=== PATIENT | female | born 1950 | race Caucasian/White ===

== ENCOUNTER → 2017-08-19 | Day surgery (SDC) | payer OTHER, MEDICARE ==
[2017-08-18 12:30] LABS: BASOPHILS # (AUTO) 0.1 (0.0-0.1); BASOPHILS % 0.9 % (0.0-1.0); EOSINOPHILS # (AUTO) 0.3 (0.0-0.4); EOSINOPHILS % 4.4 % (0.0-6.0); HEMATOCRIT 39.9 % (34.2-44.1); HEMOGLOBIN 14.3 g/dL (12.0-16.0); LYMPHOCYTES # (AUTO) 2.2 (1.0-3.2); LYMPHOCYTES % 33.1 % (18.0-39.1); MEAN CORPUSCULAR HEMOGLOBIN 33.7 pg (28-32); MEAN CORPUSCULAR HGB CONC 35.8 g/dL (31-35); MEAN CORPUSCULAR VOLUME 94.1 fL (81-99); MONOCYTES # (AUTO) 0.5 (0.2-0.8); MONOCYTES % 8.1 % (4.4-11.3); NEUTROPHILS # (AUTO) 3.5 (2.1-6.9); PLATELET COUNT 107 x10e3/uL (140-360); RED BLOOD COUNT 4.24 x10e6/uL (3.6-5.1); RED CELL DISTRIBUTION WIDTH 14.1 % (11.7-14.4)
[2017-08-18 12:43] LABS: ANION GAP 13.9 mmol/L (8-16); BLOOD UREA NITROGEN 11 mg/dL (7-26); BUN/CREATININE RATIO 13 (6-25); CALCIUM 10.8 mg/dL (8.4-10.2); CARBON DIOXIDE 25 mmol/L (22-29); CHLORIDE 105 mmol/L (98-107); CREATININE, SERUM 0.82 mg/dL (0.57-1.11); EST GLOMERULAR FILTRATION RATE > 60 ML/MIN (60-); GLUCOSE 128 mg/dL (74-118); POTASSIUM 3.9 mmol/L (3.5-5.1); SODIUM 140 mmol/L (136-145)
--- NOTE | 2017-08-18 12:56 | Diagnostic Imaging Report ---
PROCEDURE: Frontal and lateral views of the chest. COMPARISON: Chest 2 views 03/11/2013. INDICATIONS: PREOPERATIVE CHEST XRAY FOR AXILLARY ADENOMA SURGERY FINDINGS: Lines/tubes: None. Lungs: The lungs are well inflated and clear. There is no evidence of pneumonia or pulmonary edema. Densities projecting over the lateral hemithoraces likely represent superimposed soft tissues from the upper extremities. Pleura: There is no pleural effusion or pneumothorax. Heart and mediastinum: The heart and the mediastinum are normal. Bones: No acute bony abnormality. Degenerative changes of the thoracic spine. IMPRESSION: No acute radiographic abnormality. Dictated by: Kyler Rojas M.D. on 08/18/2017 at 12:57 Electronically approved by: Kyler Rojas M.D. on 08/18/2017 at 12:57
[~2017-08-19] MED LIST: ALLERCLEAR10 MG PO; ALTACE2.5 MG PO; ASPIRIN81 MG PO; BUPIVACAINE 0.25%/EPI 30ML SDV INJ ONE; CALCIUM + VITA1 EACH PO; CALCIUM600 MG PO; CRESTOR20 MG PO; DEXAMETHASONE SOD PHOS INJ 4 MG/ML VIAL ONE; DILTIAZEM 24HR120 MG PO; FENTANYL CITRATE/PF 100MCG/2 ML INJ ONE; GLUCOPHAGE1000 MG PO; HEARTBURN RELI150 MG PO; HUMALOG100 UNIT/3 SQ; HUMULIN R100 UNIT/2 SC; INVOKANA PO; KETOROLAC TROMETHAMINE 30 MG/ML VIAL ONE; LIDOCAINE HCL 2% LOCAL INJ 5 ML SDV VIAL INJ ONE; MIDAZOLAM HCL 2 MG/2 ML VIAL ONE; ONDANSETRON HCL INJ 2 MG/ML VIAL ONE; PANTOPRAZOLE SO40 MG PO; PLAVIX75 MG PO; PROPOFOL IV EMULSION 10 MG/ML 20 ML VIAL ONE; SEVOFLURANE INHAL SOLN 250 ML PEN BTL ONE; TIROSINT75 MCG PO; VIT B12 INJ; VIT D; VITAMIN D1000 UNI1 PO; ZEBETA10 MG PO
--- OUTSIDE RECORDS SUMMARY | 2017-08-19 10:08 | XMS REPORT | Summary of Care ---
Author Author RYLEY Calix, SILVIA Organization Unknown Address [facility] Phone Unavailable Care Team Providers Care Lay Out Helper Name Role Phone SILVIA HEDRICK M.D. Unavailable Unavailable GORDON N.PJANKI Loera Unavailable Unavailable Unavailable Unavailable Functional Status Name Dates Details Functional status health issues are not documented Status: Name Dates Details Cognitive status health issues are not documented Status: Problems Name Dates Details Postmenopausal bleeding (627.1, N95.0) Status: Active Bacterial endocarditis (421.0, I33.0) Status: Active Medications Name Dates Details Aspirin Low Dose 81 MG Oral Tablet Delayed Release * Start : 01-Jun-2017 Active Bisoprolol Fumarate 5 MG Oral Tablet * Refills: 0 * Start : 01-Jun-2017 Active Clopidogrel Bisulfate 75 MG Oral Tablet * Refills: 0 * Start : 01-Jun-2017 Active 30 Tablet Bottle Cyanocobalamin 1000 MCG/ML Injection Solution * Refills: 0 * Start : 01-Jun-2017 Active DilTIAZem HCl - 120 MG Oral Tablet * Refills: 0 * Start : 01-Jun-2017 Active HumuLIN R U-500 (CONCENTRATED) 500 UNIT/ML Subcutaneous Solution * Refills: 0 * Start : 01-Jun-2017 Active Invokana 100 MG Oral Tablet * Refills: 0 * Start : 01-Jun-2017 Active Levothyroxine Sodium 112 MCG Oral Tablet * Refills: 0 * Start : 01-Jun-2017 Active Loratadine 10 MG Oral Tablet * Refills: 0 * Start : 01-Jun-2017 Active MetFORMIN HCl - 1000 MG Oral Tablet * Refills: 0 * Start : 01-Jun-2017 Active Ramipril 2.5 MG Oral Capsule * Refills: 0 * Start : 01-Jun-2017 Active RaNITidine HCl - 150 MG Oral Capsule * Refills: 0 * Start : 01-Jun-2017 Active Rosuvastatin Calcium 20 MG Oral Tablet * Refills: 0 * Start : 01-Jun-2017 Active Suprep Bowel Prep Kit 17.5-3.13-1.6 GM/180ML Oral Solution * Refills: 0 * Start : 01-Jun-2017 Active 2 x 177 ML Bottle Vitamin D (Ergocalciferol) 42196 UNIT Oral Capsule * Refills: 0 * Start : 01-Jun-2017 Active Clindamycin HCl - 300 MG Oral Capsule TAKE 2 CAPSULE Bedtime Take on the night prior to surgery. * Quantity: 2 Refills: 0 GORDON N.P., JANKI * Start : 21-Jul-2017 Active Allergies and Adverse Reactions Name Dates Details Atrovent AERS (Allergy) Status: Active Bentyl TABS (Allergy) Status: Active Ceftin TABS (Allergy) Status: Active erythromycin (Allergy) Status: Active Flagyl TABS (Allergy) Status: Active Lidocaine HCl (PF) SOLN (Allergy) Status: Active Penicillins (Allergy) Status: Active Singulair TABS (Allergy) Status: Active sulfa (Allergy) Status: Active Vancomycin HCl SOLR (Allergy) Status: Active Past Medical History Name Dates Details History of Asthma (493.90, J45.909) Status: Resolved History of Cancer (199.1, C80.1) Status: Resolved History of Diabetes (250.00, E11.9) Status: Resolved History of Heart disease (429.9, I51.9) Status: Resolved History of Hepatitis (573.3, K75.9) Status: Resolved History of High blood pressure (401.9, I10) Status: Resolved History of Thyroid disease (246.9, E07.9) Status: Resolved Procedures Procedure Dates Details History of Tubal Ligation Completed History of Tonsillectomy Completed History of Appendectomy Completed History of Mastectomy Completed History of Coronary artery stent placement Completed History of Carpal tunnel surgery Completed Immunization Name Dates Details Immunizations not documented Family History Name Dates Details Family history of Endometrial cancer, BRCA1 positive (182.0, C54.1) Status: Active Name Dates Details Family history of malignant neoplasm of breast (V16.3, Z80.3) Status: Active Family history of malignant neoplasm of uterus (V16.49, Z80.49) Status: Active Family history of Endometrial cancer, BRCA1 positive (182.0, C54.1) Status: Active Name Dates Details Family history of malignant neoplasm of breast (V16.3, Z80.3) Status: Active Family history of malignant neoplasm of uterus (V16.49, Z80.49) Status: Active Family history of Endometrial cancer, BRCA1 positive (182.0, C54.1) Status: Active Name Dates Details Family history of malignant neoplasm of breast (V16.3, Z80.3) Status: Active Family history of malignant neoplasm of uterus (V16.49, Z80.49) Status: Active Family history of Endometrial cancer, BRCA1 positive (182.0, C54.1) Status: Active Social History Name Dates Details - Status: Name Dates Details Never smoker Vital Signs Date Test Result Details [id number] BP Systolic 116 mm[Hg] Status: Comments: Location: RUE; Position: Sitting BP Diastolic 68 mm[Hg] Status: Comments: Location: RUE; Position: Sitting Height 59 in Status: Weight 183 lb Status: Body Mass Index Calculated 36.96 kg/m2 Status: Body Surface Area Calculated 1.78 m2 Status: Temperature 98.6 f Status: Comments: Method: Oral Heart Rate 73 /min Status: Respiration Rate 18 /min Status: Results Date Description Value Details Results not documented Plan of Care Name Dates Details Planned Observations Planned Goals not documented Interventions Provided Discussion/Summary* 66yo female with PMH including HTN, CAD, T2DM, HypoT, HLD, Asthma, HepC with cirrhosis, & Breast cancer presents as referral for postmenopausal bleeding. * 1. Postmenopausal bleeding * -Benign D and C in 07/17. * RTC PRN * Will continue well woman care at [facility] per patient preference. * 2. Comorbidites managed by PCP and sub-specialities * - HTN, CAD, T2DM, HypoT, HLD, Asthma -> See Medications for complete list, of note pt is on Plavix * - HepC with cirrhosis -> Recently diagnosed, planning to f/u with hepatology ( still has not seen a case technician) * - Breast cancer -> Pt is +for variant of BRCA 2 with h/o 2 primary breast cancers. s/p Arimidex tx, never used tamoxifen. * Dispo: RTC in 2-3wks after surgery * . * Discussed above with patient. Questions answered. Instructions Name Dates Details Instructions not documented Encounters Appointment; SILVIA HEDRICK M.D. Encounter Diagnosis: Problem not documented On: 01-Jun-2017 13:00 Appointment; SILVIA HEDRICK M.D. Encounter Diagnosis: Problem not documented On: 06-Jul-2017 11:20 Appointment; SILVIA HEDRICK M.D. Encounter Diagnosis: Problem not documented On: 26-Jul-2017 11:30 Appointment; SILVIA HEDRICK M.D. Encounter Diagnosis: Problem not documented On: 10-Aug-2017 15:00
--- OUTSIDE RECORDS SUMMARY | 2017-08-19 10:08 | XMS REPORT ---
Author Author [facility] Address Unknown Phone Unavailable Care Team Providers Care Medical Assistant Name Role Phone MATTHEW BORJA Unavailable Unavailable Problems This patient has no known problems. Allergies, Adverse Reactions, Alerts This patient has no known allergies or adverse reactions. Medications This patient has no known medications. Results Test Description Test Time Test Comments Text Results Atomic Results Result Comments CHEST 2 VIEWS [place] [id number] Patient Name: FRANK MCLAUGHLIN MR #: [id number] : 1950 Age/Sex: 66/F Req # : [id number] Adm Physician: Ordered by: MATTHEW BORJA MD Report #: [id number] Location: OR Room/Bed: Procedure: [id number] DX/CHEST 2 VIEWS Exam Date: 08/18/17 Exam Time : 1220 REPORT STATUS: Signed PROCEDURE: Frontal and lateral views of the chest. COMPARISON: Chest 2 views 03/11/2013. INDICATIONS: PREOPERATIVE CHEST XRAY FOR AXILLARY ADENOMA SURGERY FINDINGS: Lines /tubes: None. Lungs: The lungs are well inflated and clear. There is no evidence of pneumonia or pulmonary edema. Densities projecting over the lateral hemithoraces likely represent superimposed soft tissues from the upper extremities. Pleura: There is no pleural effusion or pneumothorax. Heart and mediastinum: The heart and the mediastinum are normal. Bones: No acute bony abnormality. Degenerative changes of the thoracic spine. IMPRESSION: No acute radiographic abnormality. Dictated by: John Lowe M.D. on 08/18/2017 at 12:57 Electronically approved by: John Lowe M.D. on 08/18/2017 at 12:57 Dictated By: JOHN LOWE MD [id number] COPY TO: MATTHEW BORJA MD
[2017-08-19 10:59] LABS: INR 1.3; PROTHROMBIN TIME 15.2 seconds (11.9-14.5)
[2017-08-19 11:00] LABS: PARTIAL THROMBOPLASTIN TIME 30.4 seconds (23.8-35.5)
--- NOTE | 2017-08-19 15:03 | Operative Report ---
DATE OF PROCEDURE: August 19, 2017 PREOPERATIVE DIAGNOSIS: Right axillary adenopathy, rule out malignancy. History of right breast cancer. OPERATION PERFORMED: Right axillary lymphadenectomy. BOWLING BALL ASSEMBLER: GARRET Pitts. ANESTHESIA: General. COMPLICATIONS: None. ESTIMATED BLOOD LOSS: Minimal. DESCRIPTION OF PROCEDURE: With the patient lying in bed in the supine position, under good general anesthesia, the right chest and axilla were prepped with Betadine solution and draped in the usual manner. The area overlying the base of the right axilla was then infiltrated with 1/4 percent Marcaine with epinephrine. An incision was made and was carried down through the subcutaneous tissue and through the superficial fascia, and the axilla was entered. Immediately, a palpable large adenopathy was felt, which was slowly and carefully from all of the surrounding structures. All bleeding points were ligated with 2-0 Vicryl and divided, and the specimen was removed and sent for pathological examination. Hemostasis was ascertained. The superficial fascia and subcutaneous tissue were approximated with interrupted sutures of 3-0 Vicryl, and the skin was closed with interrupted vertical mattress sutures of 3-0 silk. A dressing was applied. The sponge, lap and needle count was correct. Patient tolerated the procedure well and returned to the recovery room in stable condition. Job#: [id number]
== END | disposition home or self-care (01) ==
LOC: OR 10:05
PROVIDERS: ATTEND Surgery
DX: R59.0 Localized enlarged lymph nodes (principal); J45.909 Unspecified asthma, uncomplicated; I25.10 Atherosclerotic heart disease of native coronary artery without angina pectoris; I10 Essential (primary) hypertension; E11.9 Type 2 diabetes mellitus without complications; B19.20 Unspecified viral hepatitis C without hepatic coma; I25.2 Old myocardial infarction; Z88.0 Allergy status to penicillin; Z88.2 Allergy status to sulfonamides; Z01.812 Encounter for preprocedural laboratory examination; Z01.818 Encounter for other preprocedural examination; Z79.82 Long term (current) use of aspirin; Z79.02 Long term (current) use of antithrombotics/antiplatelets; Z85.3 Personal history of malignant neoplasm of breast
CPT/HCPCS: 36415 ×2; 38525; 71046; 80048; 82948; 85025; 85610; 85730; 88307; J1100; J1885; J2001; J2250; J2405